=== PATIENT | female | born 1985 | race Asian ===

== ENCOUNTER 2017-04-28 11:09 | Emergency (ER) | payer OTHER ==
[~2017-04-28] VITALS: Ht 165.1 cm; Wt 52.2 kg
[2017-04-28 11:10] VITALS: BP 132/86
--- NOTE | 2017-04-28 11:28 | Emergency Room Report ---
History of Present Illness General Chief Complaint: General Complaint Source: Patient Present Illness HPI The patient had a syncopal episode at a [employer] and then was inappropriate. EMS deny anyone seeing tonoclonic behavior. The patient has never had seizures before. She flew from [employer] last night and feels fatigued. She also takes Adderall, baclofen and Lyrica. She denies fevers, chest pain, head injury, weakness. She feels tired. She denies SI or HI. She has a fear of needles from suturing when she was a child. She denies . No dysuria, NVD. The baclofen and Lyrica are for chronic back pain. This is unchanged. Allergies: Coded Allergies: No Known Allergies (Unverified , 04/28/17) Patient History Past Medical History: see triage record Social History: Reports: smoking Social History Narrative has boyfriend Last Menstrual Period: 04/23/17 Now: No : 1 Para: 0 Reviewed Nursing Documentation: PMH: Agreed, PSxH: Agreed Nursing Documentation-PMH Past Medical History: No Stated History Review of Systems All Other Systems: negative except mentioned in HPI Physical Exam Vital Signs Date Time Temp Pulse Resp B/P Pulse Ox O2 Delivery O2 Flow Rate FiO2 04/28/17 11:00 98.4 96 16 132/86 99 Room Air Sp02 EP Interpretation: reviewed, normal General Appearance: well appearing, no apparent distress, GCS 15 Head: normocephalic Eyes: bilateral eye EOMI, bilateral eye PERRL, bilateral eye Scleral Injection ENT: moist mucus membranes Neck: supple Respiratory: lungs clear, normal breath sounds Cardiovascular #1: regular rate, rhythm Cardiovascular #2: 2+ radial (R) Gastrointestinal: normal inspection, normal bowel sounds, non tender, no mass, non-distended Musculoskeletal: back normal, gait/station normal, normal range of motion Neurologic: alert, oriented x3, motor strength/tone normal, DTRs symmetric, sensory intact, cerebellar normal, normal gait, speech normal Psychiatric: no suicidal/homicidal ideation, anxious - about needles Skin: normal inspection, warm/dry Medical Decision Making Diagnostic Impression: Primary Impression: Syncope Qualified Codes: R55 - Syncope and collapse Additional Impression: Fatigue Qualified Codes: R53.83 - Other fatigue ER Course The patient presents after a syncopal episode. There was no seizure activity noted. The patient was somewhat inappropriate with refusing to go to the hospital initially. Accu-Chek was normal in the field. Differential includes vasovagal, dehydration, fatigue, medication reaction, partial complex seizure amongst others. Evaluation will be with observation and excluding , glycosuria an occult infection. The patient's refusing labs at this time. Accu -Chek was normal in the field. The patient continued to improve. She denies any pain. She also denied suicidal or homicidal ideation. She has no psychotic thoughts. The patient was stable for discharge. We encouraged her to be discharged with her boyfriend. Laboratory Tests Test 04/28/17 11:40 Urine Color Pale yellow Urine Appearance Clear Urine pH 9 (4.5-8.0) Urine Specific [place] 1.015 (1.005-1.035) Urine Protein 2+ (NEGATIVE) H Urine Glucose (UA) Negative (NEGATIVE) Urine Ketones 3+ (NEGATIVE) H Urine Occult Blood Negative (NEGATIVE) Urine Nitrite Negative (NEGATIVE) Urine Bilirubin Negative (NEGATIVE) Urine Urobilinogen Normal MG/DL (0.0-1.0) Urine Leukocyte Esterase Negative (NEGATIVE) Urine RBC 0-2 /HPF (0 - 2) Urine WBC 0-2 /HPF (0 - 2) Urine Squamous Epithelial Cells Few /LPF (NONE/OCC) Urine Bacteria Few /HPF (NONE) Urine HCG, Qualitative Negative Urine Opiates Screen Negative (NEGATIVE) Urine Barbiturates Screen Negative (NEGATIVE) Phencyclidine (PCP) Screen Negative (NEGATIVE) Urine Amphetamines Screen Positive (NEGATIVE) H Urine Benzodiazepines Screen Negative (NEGATIVE) Urine Cocaine Screen Negative (NEGATIVE) Urine Marijuana (THC) Screen Negative (NEGATIVE) EKG Diagnostic Results Rate: normal Rhythm: NSR ST Segments: no acute changes Rhythm Strip Diag. Results EP Interpretation: yes Rhythm: NSR, no PVC's, no ectopy Last Vital Signs Date Time Temp Pulse Resp B/P Pulse Ox O2 Delivery O2 Flow Rate FiO2 04/28/17 13:30 103 16 170/76 100 Room Air 04/28/17 12:02 98.2 Status: improved Disposition: HOME, SELF-CARE Condition: Improved Benito Del Castillo M.D. Apr 28, 2017 11:28
[2017-04-28 12:02] VITALS: BP_SYST 170; BP_SYST 191; BP_SYST 200; BP_DIAS 132; BP_DIAS 135; BP_DIAS 76
[2017-04-28 12:46] LABS: APPEARANCE,URINE CLEAR
[2017-04-28 12:47] LABS: BACTERIA,URINE FEW /HPF; KETONES,URINE 3+ (NEGATIVE); LEUKOCYTE ESTERASE ,URINE NEGATIVE (NEGATIVE); NITRITE,URINE NEGATIVE (NEGATIVE); PH,URINE 9 (4.5-8.0); PROTEIN,URINE 2+ (NEGATIVE); RBC,URINE 0-2 /HPF (0 - 2); SQUAMOUS EPITHELIAL CELL,UR FEW /LPF (NONE/OCC); UROBILINOGEN,URINE NORMAL MG/DL (0.0-1.0); WBC,URINE 0-2 /HPF (0 - 2)
[2017-04-28 13:30] VITALS: BP 170/76
== END 2017-04-28 13:35 | disposition home or self-care (01) ==
LOC: EDBD 11:09 → EMR 11:42
DX: R55 Syncope and collapse (principal); R53.83 Other fatigue
CPT/HCPCS: 80300; 81003; 81025; 93005; 99283